=== PATIENT | female | born 1965 | race Asian ===

== ENCOUNTER → 2016-12-18 | Outpatient (CLI) | payer OTHER ==
--- NOTE | 2016-12-18 18:07 | REP ---
UNILATERAL DIAGNOSTIC MAMMOGRAM RIGHT BREAST WITH RIGHT BREAST ULTRASOUND: CLINICAL HISTORY: Left breast cancer and mastectomy. There is a family history of breast cancer in mother. Patient complains of right breast pain with an area of redness laterally. Patient had breast implant placed in 2016. Comparison Studies are 03/10/2015 as well as multiple other prior exams. Right breast implant appears intact. There is moderate fibroglandular tissue in the right breast. The area of redness laterally is marked on the skin and there is no underlying mammographic abnormality. Medially in the region of 3 o'clock of the right breast there is a questionable 4 mm faint nodule present. This appears to be best visualized on the spot ML view and is questionably visualized on spot right CC view medially. There is no other evidence of mass or clustered microcalcifications. Real-time sonographic evaluation of the 3 o'clock region of the right breast demonstrates an oval nodule with diffuse level echo's appearing to represent a complex cyst. This may correspond to the mammographic abnormality. Laterally in the area of redness there is superficial subcutaneous hypoechoic echotexture approximately 3 mm in thickness with widths of 2.4 x 1.1 cm. This probably represents subcutaneous edema and inflammation. IMPRESSION: ACR 3 probably benign. At the site skin redness laterally in the right breast there appears to be focal skin thickening and edema with no suspicious mass. At the 3 o'clock position of the right breast there is a probable faint 4 mm nodule identified by mammography. This may correspond to a 4 mm complex cyst by ultrasound. This is probably benign. Recommend 6 month followup mammogram and ultrasound of the right breast. Given the moderately dense breast parenchyma and history of breast cancer further evaluation could be made with MRI. This mammogram was interpreted with the aid of an FDA-approved computer-aided detection system. The patient states she had a clinical breast exam in 11/2016. The patient letter being requested is M3. Signed by Theo Ng MD 12/19/2016 05:53 P
== END ==
LOC: M RAD 13:51
PROVIDERS: ATTEND Physician Assistant Medical
DX: N63 Unspecified lump in breast (principal)
CPT/HCPCS: 76642; G0206